=== PATIENT | female | born 1990 | race Caucasian/White ===

== ENCOUNTER → 2017-10-16 | Outpatient (CLI) | payer BC ==
--- NOTE | 2017-10-16 17:15 | CONS ---
CONSULTATION DATE OF SERVICE: 10/16/2017 27-year-old lady has been [facility] for possible obstructive sleep apnea-hypopnea syndrome. At present patient is 27 week weeks. HISTORY OF PRESENT ILLNESS SLEEP WAKE EVALUATION: SLEEP SCHEDULE: Patient usual sleep schedule on working days from 9 p.m. to 6:20 am and on weekends, from around, 11:00 am to 8:30/9 am. FALLING ASLEEP: She does not have any problem with the falling asleep although she reads in her bedroom. She prefers to sleep on the side position. DURING SLEEP: According to her , she has loud snoring and witnessed episodes of stopped breathing during the sleep. Positive history of restless legs symptoms. Patient wakes up from sleep 5 times with up to 3 episodes of nocturia. DURING THE DAY/SLEEP WAKE EVALUATION: No history of hypnagogic hallucinations, sleep paralysis or cataplexy. [place] Sleepiness Scale increased to 12. PAST MEDICAL HISTORY: Positive for seasonal allergies with episodes of rhinitis and difficulties to breathe through the nose, especially at night. 27 weeks. MEDICATIONS: vitamins, Zyrtec. PAST SURGICAL HISTORY: None. FAMILY HISTORY: Hypertension, arthritis, snoring, thyroid problems, anemia. SOCIAL HISTORY: Negative for smoking. Alcohol consumption none at the present time. PHYSICAL EXAM: lady without distress. BP 124/65, HR 80, RR 16, height 5 feet 3 inches, weight 147, and body mass index 26. Temperature 97.5, oxygen saturation room air 97%. Oropharynx moderately low position of soft palate, significant restriction of nasal breathing. Retrognathia 2 mm. Neck 12.5 inches in circumference. Abdomen of 27 week . I did not evaluate size of liver and spleen because of . Neck Supple, no JVD. Thyroid is not palpable. LUNGS Clear to percussion and to auscultation. Good air exchange. No wheezing or rhonchi. HEART S1, S2 regular. No murmurs, gallops, or rubs. ABDOMEN: Soft and nontender. Bowel sounds are present. EXTREMITIES No clubbing or cyanosis. HEALTH RECORD TECHNICIAN Awake, alert, and oriented X3. Cranial nerves 2 to 7 intact. There is no fasciculation or atrophy. noted. No focal deficits observed. IMPRESSION: 1. Snoring, witnessed episodes of stopped breathing during the sleep, small oropharyngeal air space, restriction of nasal breathing, obstructive sleep apnea- hypopnea syndrome, excessive daytime sleepiness. [place] Sleepiness Scale increased to 12. Patient takes naps in the afternoon. 2. 27 weeks. 3. Allergy. 4. Allergic rhinitis. PLAN: 1. Home sleep apnea test for evaluation of patient to check patient breathing during the sleep. 2. Following plan after reviewing results of the sleep study. 3. Sleep hygiene with regular time bed for at least 8 hours. 4. No driving if feeling sleepiness. Thank you very much for referring this patient for consultation. Sincerely, Jesus Manuel Peres MD, PhD, FAASM Diplomat of [place] [employer] [place] [employer] of [facility] [place] MMODL / IJN: [id number] /
== END | disposition home or self-care (01) ==
LOC: SLEEP 13:49
PROVIDERS: ATTEND Internal Medicine
DX: O26.892 Other specified pregnancy related conditions, second trimester (principal); G47.33 Obstructive sleep apnea (adult) (pediatric); J30.9 Allergic rhinitis, unspecified; T78.40XD Allergy, unspecified, subsequent encounter; Z3A.27 27 weeks gestation of pregnancy
CPT/HCPCS: 99211

== ENCOUNTER 2018-01-16 04:00 | Inpatient (IN) | payer BC ==
[2018-01-16] MEDS ORDERED: METHYLERGONOVINE 0.2 MG/ML 1 ML AMP IM PRN (04:16)
[2018-01-16] MEDS ORDERED: PENICILLIN G POTASSIUM 5,000,000 UNIT in DEXTROSE 5% IN WATER 100 ML IVPB STA ×2 (04:16)
[2018-01-16] MEDS ORDERED: TERBUTALINE 1 MG/ML VIAL SQ PRN (04:16)
[2018-01-16] MEDS ORDERED: CARBOPROST TROMETHAMINE 250 MCG/ML 1 ML AMP IM PRN (04:16)
[2018-01-16] MEDS ORDERED: OXYTOCIN 10 UNIT/ML 1 ML VIAL IM PRN (04:16)
[2018-01-16] MEDS ORDERED: LIDOCAINE 1% (PF) 10 MG/ML (30 ML SDV) SQ PRN (04:16)
[2018-01-16] MEDS ORDERED: OXYTOCIN 20 UNITS/1000 ML NS 1,000 ML IV SCH (04:30)
[2018-01-16] MEDS ORDERED: LACTATED RINGERS 1,000 ML IV SCH (04:30)
[2018-01-16 04:38] LABS: Basophils % (A) 0 %; Eosinophils # (A) 0.2 k/uL (0-0.7); Eosinophils % (A) 2 %; HCT 39.5 % (34.0-46.0); HGB 13.6 gm/dL (11.4-16.0); Lymphocytes # (A) 2.4 k/uL (1.0-4.8); Lymphocytes % (A) 24 %; MCH 29.3 pg (25.0-35.0); MCHC 34.5 g/dL (31.0-37.0); MCV 84.9 fL (80.0-100.0); Mean Platelet Volume 7.7; Monocytes # (A) 0.5 k/uL (0-1.0); Monocytes % (A) 5 %; Neutrophils # (A) 6.7 k/uL (1.3-7.7); Neutrophils % (A) 67 %; Platelet Count 270 k/uL (150-450); RBC 4.66 m/uL (3.80-5.40); WBC 10.1 k/uL (3.8-10.6)
--- NOTE | 2018-01-16 05:05 | P.HPOB ---
History of Present Illness H&P Date: 01/16/18 Chief Complaint: Strong regular uterine contractions This is a 27-year-old white female 1 para 0 EDC 01/16/2018 at 40 weeks gestation. Patient presents with strong regular uterine contractions and perineal pressure. She denies fluid leakage or vaginal bleeding. Fetus is been active throughout the . She was checked in the triage area and noted to be 7 cm dilated, 100% effaced, vertex presentation, -1 station. Past medical history is essentially negative. Past surgical history is also negative. Current medications vitamins daily, Zyrtec as needed. ALLERGIES none known. Family history significant for breast cancer and rheumatoid arthritis. Social history patient is a teacher, she is , she has never been a smoker , she denies alcohol or drug use. Obstetric history is significant for blood type B positive, rubella status immune. VDRL testing, urine culture, hepatitis B surface antigen, HIV testing, gonorrhea and chlamydia cultures all negative. One-hour Glucola 136. Group B strep cultures positive. On exam this is a pleasant white female, 5 foot 3 inches, 149 pounds, blood pressure 114/80, pulse 80, respirations 16, temperature 98.0, O2 sat 98%. The general physical exam is within normal limits. The cervix is consistent with anterior lip, vertex presentation, 100% effaced, -1-0 station. Artificial amniorrhexis reveals clear fluid. heart rate is consistent with reactive NST. Impression: 40 week intrauterine , active labor, delivery imminent. Positive group B strep cultures. Plan: Penicillin G first unit is being hung. We will proceed with pushing efforts, anticipating normal spontaneous vaginal delivery. Review of Systems Constitutional: Reports as per HPI Medications and Allergies Home Medications Medication Instructions Recorded Confirmed Type Pnv No.95/Ferrous Fum/Folic AC 1 tab PO ONCE 01/16/18 01/16/18 History [ Multivitamin Tablet] Allergies Allergy/AdvReac Type Severity Reaction Status Date / Time No Known Allergies Allergy Verified 01/16/18 04:07 Exam Intake and Output 01/15/18 01/15/18 01/16/18 14:59 22:59 06:59 Other: Weight 67.585 kg See dictation under HPI please Results Result Diagrams: 01/16/18 04:28 Assessment and Plan Assessment: 40 week intrauterine , active labor with delivery imminent, positive group B strep cultures. Plan: Anticipate normal spontaneous vaginal delivery. First dose of penicillin G being administered at this time. Time with Patient: Less than 30
[2018-01-16] MEDS ORDERED: diphenhydrAMINE 50 MG CAP PO PRN (06:02)
[2018-01-16] MEDS ORDERED: diphenhydrAMINE 50 MG/ML 1 ML VIAL IVP PRN ×2 (06:02)
[2018-01-16] MEDS ORDERED: ZOLPIDEM 5 MG TAB PO PRN (06:02)
[2018-01-16] MEDS ORDERED: BENZOCAINE/MENTHOL SPRAY 1 GM/SPRAY AEROSOL TOPICAL PRN (06:02)
[2018-01-16] MEDS ORDERED: WITCH HAZEL 1 EACH MED..PAD TOPICAL PRN (06:02)
[2018-01-16] MEDS ORDERED: LANOLIN CREAM 5 GM TUBE TOPICAL PRN (06:02)
[2018-01-16] MEDS ORDERED: SIMETHICONE 80 MG CHEWABLE PO PRN (06:02)
[2018-01-16] MEDS ORDERED: diphenhydrAMINE 25 MG CAP PO PRN (06:02)
[2018-01-16] MEDS ORDERED: HYDROCORTISONE 2.5% RECTAL CREAM 30 GM TUBE RECTAL PRN (06:02)
[2018-01-16] MEDS ORDERED: HYDROcodone/APAP 5-325MG 1 EACH TAB PO PRN (06:02)
--- NOTE | 2018-01-16 06:02 | P.PROBDLV ---
Vaginal Delivery Note - . Vaginal Delivery Note: This is a 27-year-old white female 1 para 0 EDC 01/17/1840 weeks gestation. Patient presented with strong regular uterine contractions, denying fluid leakage or vaginal bleeding. Fetus is been active throughout the . history significant for positive group B strep cultures, blood type A+, rubella status immune. Please see my dictated history and physical for details. Artificial amniorrhexis revealed clear fluid. Patient very quickly had anterior lip and therefore time was not adequate for epidural administration. Penicillin G was given 1 dose. Patient was completely dilated at 0451 hours and began the second stage of labor at that time. With excellent maternal expulsive efforts ultimately the infant's head crowned. Perineal body was prepped and draped in usual sterile fashion. Infant's head delivered occiput anterior and she restituted accordingly. There was no nuchal cord noted. The right or anterior shoulder was delivered from underneath the pubic symphysis at which time the oropharynx, nasopharynx, and external nares were all bulb suction. Patient was officially delivered of a liveborn female at 0533 hours. Umbilical cord was doubly clamped and ligated, she was handed to waiting nurses for evaluation where scores of 7 and 8 at one and 5 minutes respectively were given. Infant weighed 3425 g or 7 lbs. 8 oz. The placenta was delivered spontaneously , it was inspected and noted to be intact with trivascular cord at 0537 hours. At this time the uterus was massaged. Inspection of cervix, vagina, perineum, periurethral, and perirectal areas revealed a third-degree laceration. This was repaired in the usual fashion using 3-0 Vicryl suture, with care to reapproximate the sphincter muscle. Rectal examination after repair reveals good tone, smooth mucosa with no defects. Total estimated blood loss 350 mL's. All sponge needle and enhancement counts are correct at the end the procedure. Patient and her family are allowed to begin the bonding experience in the LDR.
[2018-01-16 06:20] VITALS: BMI 26.4
[2018-01-16] MEDS: IBUPROFEN 600 MG TAB PO PRN ×3 (07:17→19:27)
[2018-01-16] MEDS: SENNOSIDES-DOCUSATE SODIUM 1 EACH TAB PO SCH ×2 (07:18→19:25)
[2018-01-16] MEDS ORDERED: PENICILLIN G POTASSIUM 2,500,000 UNIT in DEXTROSE 5% IN WATER 100 ML IVPB SCH ×2 (09:00)
[2018-01-17] MEDS: ACETAMINOPHEN TAB 325 MG TAB PO PRN ×3 (00:14→19:44)
[2018-01-17] MEDS: IBUPROFEN 600 MG TAB PO PRN ×4 (03:35→22:43)
[2018-01-17] MEDS: SENNOSIDES-DOCUSATE SODIUM 1 EACH TAB PO SCH ×2 (07:50→20:15)
--- NOTE | 2018-01-17 08:34 | P.PNOBGVD ---
Subjective - Subjective Principal diagnosis: PPD 1 Interval history: Patient is doing well . She is ambulating and voiding without difficulty. She states her pain is controlled with oral medications. She is tolerating a regular diet without nausea or vomiting. She states her lochia is moderate. She is breast-feeding with some difficulty at this time. Patient reports: Reports appetite normal, Reports voiding normally, Reports pain well controlled : doing well Objective - Latest Vital Signs Latest vital signs: Vital Signs Temp Pulse Resp BP Pulse Ox 01/16/18 16:00 98.3 F 89 18 104/75 96 01/16/18 12:00 98.0 F 84 18 114/73 97 Intake and Output 01/16/18 01/17/18 01/17/18 22:59 06:59 14:59 Other: # Voids 1 2 - Exam Extremities: Present: normal Abdomen: Present: normal appearance, soft Uterus: Present: firm Assessment and Plan (1) Term Current Visit: Yes Status: Acute Code(s): Z34.80 - ENCOUNTER FOR SUPRVSN OF NORMAL , UNSP TRIMESTER SNOMED Code(s): 48259326 (2) Positive GBS test Current Visit: Yes Status: Acute Code(s): B95.1 - STREPTOCOCCUS, GROUP B, CAUSING DISEASES CLASSD [facility] SNOMED Code(s): 9648396999837 (3) Status post vaginal delivery Current Visit: Yes Status: Acute Code(s): QUS7489 - SNOMED Code(s): 107769151 (4) Third degree laceration of perineum during delivery, Current Visit: Yes Status: Acute Code(s): O70.20 - THIRD DEGREE PERINEAL LACERATION DURING DELIVERY, UNSP SNOMED Code(s): 999229173 Plan: We'll continue routine care. anticipate discharge home tomorrow morning.
[2018-01-18] MEDS: IBUPROFEN 600 MG TAB PO PRN (06:12)
[2018-01-18 08:41] VITALS: BP 108/71; PULSE 103; RESP 18; TEMP 97.3
--- NOTE | 2018-01-18 08:50 | P.DS ---
Providers Date of admission: 01/16/18 04:20 Expected date of discharge: 01/18/18 Attending physician: Yenny Koo Primary care physician: Myranda Sauceda - Discharge Diagnosis(es) (1) Term Current Visit: Yes Status: Acute (2) Positive GBS test Current Visit: Yes Status: Acute (3) Status post vaginal delivery Current Visit: Yes Status: Acute (4) Third degree laceration of perineum during delivery, Current Visit: Yes Status: Acute Hospital Course: This is a very pleasant 27-year-old 1 para 0 at 40-0/7 weeks that presents to labor and delivery on 817 with regular strong contractions. Patient was noted to be 7 cm progressed quickly to complete began pushing and had a normal spontaneous vaginal delivery of a viable female at 533, weight of 7 lbs. 8 oz. she did sustain a third degree vaginal laceration during delivery Patient has done well . She is ambulating and voiding without difficulty. She is tolerating a regular diet without nausea or vomiting. She states her pain is well-controlled. She states her lochia is moderate. She does wish discharge home on this day #2 Patient Condition at Discharge: Good Plan - Discharge Summary New Discharge Prescriptions: No Action Pnv No.95/Ferrous Fum/Folic AC [ Multivitamin Tablet] 1 tab PO ONCE Discharge Medication List Pnv No.95/Ferrous Fum/Folic AC [ Multivitamin Tablet] 1 tab PO ONCE [History] Follow up Appointment(s)/Referral(s): Yenny Koo DO [Doctor of Osteopathic Medicine] - 4 Weeks Patient Instructions/Handouts: Vaginal Delivery (DC), Vaginal Delivery (GEN) Discharge Disposition: HOME SELF-CARE
[2018-01-18] MEDS: SENNOSIDES-DOCUSATE SODIUM 1 EACH TAB PO SCH (09:04)
== END 2018-01-18 11:34 | disposition home or self-care (01) | DRG 775 ==
LOC: FBPOP 04:00 → 4FBP 04:20
PROVIDERS: ADMIT Obstetrics & Gynecology; ATTEND Obstetrics & Gynecology Obstetrics
PROC: 10907ZC Drainage of Amniotic Fluid, Therapeutic from Products of Conception, Via Natural or Artificial Opening (ICD-10-PCS; principal; 2018-01-16)
PROC: 10E0XZZ Delivery of Products of Conception, External Approach (ICD-10-PCS; principal; 2018-01-16)
PROC: 0DQR0ZZ Repair Anal Sphincter, Open Approach (ICD-10-PCS; principal; 2018-01-16)
DX: O48.0 Post-term pregnancy (principal); O70.20 Third degree perineal laceration during delivery, unspecified; Z37.0 Single live birth; O99.824 Streptococcus B carrier state complicating childbirth; Z3A.40 40 weeks gestation of pregnancy; Z80.3 Family history of malignant neoplasm of breast
CPT/HCPCS: 59025; 85025; 99213

== ENCOUNTER 2020-12-19 02:42 | Inpatient (IN) | payer BC ==
[2020-12-19] MEDS ORDERED: LIDOCAINE 0.5% (PF) 5 MG/ML (50 ML SDV) SQ PRN (03:15)
[2020-12-19] MEDS ORDERED: METHYLERGONOVINE 0.2 MG/ML 1 ML AMP IM PRN (03:15)
[2020-12-19] MEDS ORDERED: OXYTOCIN 10 UNIT/ML 1 ML VIAL IM PRN (03:15)
[2020-12-19] MEDS ORDERED: CARBOPROST TROMETHAMINE 250 MCG/ML 1 ML AMP IM PRN (03:15)
[2020-12-19] MEDS ORDERED: TERBUTALINE 1 MG/ML VIAL SQ PRN (03:15)
[2020-12-19] MEDS ORDERED: AMPICILLIN 2,000 MG in SODIUM CHLORIDE 0.9% 100 ML IVPB ONE (03:30)
[2020-12-19] MEDS: LACTATED RINGERS 1,000 ML IV SCH ×3 (03:48→20:12)
[2020-12-19 03:53] LABS: Basophils % (A) 0 %; Eosinophils # (A) 0.1 k/uL (0-0.7); Eosinophils % (A) 2 %; HCT 39.4 % (34.0-46.0); HGB 13.5 gm/dL (11.4-16.0); Lymphocytes # (A) 2.1 k/uL (1.0-4.8); Lymphocytes % (A) 32 %; MCH 29.8 pg (25.0-35.0); MCHC 34.3 g/dL (31.0-37.0); MCV 86.8 fL (80.0-100.0); Mean Platelet Volume 7.9; Monocytes # (A) 0.3 k/uL (0-1.0); Monocytes % (A) 4 %; Neutrophils % (A) 60 %; Platelet Count 244 k/uL (150-450); RBC 4.55 m/uL (3.80-5.40); RDW 12.6 % (11.5-15.5); WBC 6.6 k/uL (3.8-10.6)
[2020-12-19] MEDS: AMPICILLIN 1,000 MG in SODIUM CHLORIDE 0.9% 50 ML IVPB SCH ×2 (07:30→11:31)
--- NOTE | 2020-12-19 08:27 | P.HPOB ---
History of Present Illness H&P Date: 12/19/20 Chief Complaint: IUP at 40 and 5/7 weeks, active labor This is a 30-year-old 001 at 40-5/7 weeks with an estimated due date of 12/14. Patient presents to labor and delivery of with complaints of regular painful contractions. Patient was noted to be 4 cm upon admission. Patient denied vaginal bleeding or loss of fluid. Patient has been receiving routine care which has been essentially uncomplicated. Patient has known blood type of A+, rubella status immune, hepatitis B surface antigen negative, HIV negative, RPR nonreactive, group beta strep is positive. Review of Systems Constitutional: Denies chills, Denies fatigue, Denies fever Ears, nose, mouth and throat: Denies headache Cardiovascular: Reports leg edema Respiratory: Denies dyspnea Gastrointestinal: Denies constipation, Denies diarrhea, Denies nausea, Denies vomiting Genitourinary: Reports Past Medical History Past Medical History: No Reported History History of Any Multi-Drug Resistant Organisms: None Reported Past Surgical History: No Surgical Hx Reported Past Anesthesia/Blood Transfusion Reactions: No Reported Reaction Past Psychological History: No Psychological Hx Reported Smoking Status: Never smoker Past Alcohol Use History: None Reported Past Drug Use History: None Reported - Past Family History Mother Family Medical History: Rheumatoid Arthritis (RA) Father Family Medical History: Hyperlipidemia, Hypertension Medications and Allergies Home Medications Medication Instructions Recorded Confirmed Type Pnv No.95/Ferrous Fum/Folic AC 1 tab PO ONCE 01/16/18 12/19/20 History [ Multivitamin Tablet] Cetirizine HCl [Zyrtec] 1 tab PO DAILY 12/19/20 12/19/20 History Allergies Allergy/AdvReac Type Severity Reaction Status Date / Time No Known Allergies Allergy Verified 12/19/20 02:51 Exam Osteopathic Statement: *. No significant issues noted on an osteopathic structural exam other than those noted in the History and Physical/Consult. Vital Signs Temp Pulse Resp BP Pulse Ox 12/19/20 02:50 97.4 F L 103 H 18 100/64 97 Intake and Output 12/18/20 12/19/20 12/19/20 22:59 06:59 14:59 Other: Weight 68.492 kg Targeted physical exam is performed in this date and director park a well-nourished well-developed female in labor, breathing is done labored, heart has a regular rate and rhythm, abdomen is gravid and appropriate for gestational age, on cervical exam she is 9/100/-1 station amniotomy is performed and clear fluid is obtained. heart tones returned be category 1 and she is veena every 3 minutes. Results Result Diagrams: 12/19/20 03:30 Assessment and Plan (1) Post-dates Current Visit: Yes Status: Acute Code(s): O48.0 - POST-TERM SNOMED Code(s): 60210638 (2) Positive GBS test Current Visit: No Status: Acute Code(s): B95.1 - STREPTOCOCCUS, GROUP B, CAUSING DISEASES CL[facility]SD [facility] SNOMED Code(s): 577078407 Plan: 30-year-old at 40-5/7 weeks that presents to labor and delivery for active labor. Patient is admitted to labor and delivery. Patient declines Pitocin augmentation of labor. Patient declines epidural. Amniotomy was performed as patient is 9 cm and veena at irregular intervals at this time. Anticipate spontaneous vaginal delivery.
[2020-12-19] MEDS ORDERED: OXYTOCIN 30 UNITS/500 ML NS 30 UNIT in SALINE 1 500ML.BAG IV SCH ×2 (08:45→09:30)
[2020-12-19] MEDS ORDERED: HYDROCORTISONE 2.5% RECTAL CREAM 30 GM TUBE RECTAL PRN (09:19)
[2020-12-19] MEDS ORDERED: LANOLIN CREAM 5 GM TUBE TOPICAL PRN (09:19)
[2020-12-19] MEDS ORDERED: BENZOCAINE/MENTHOL SPRAY 1 GM/SPRAY AEROSOL TOPICAL PRN (09:19)
[2020-12-19] MEDS ORDERED: diphenhydrAMINE 50 MG CAP PO PRN (09:19)
[2020-12-19] MEDS ORDERED: ZOLPIDEM 5 MG TAB PO PRN (09:19)
[2020-12-19] MEDS ORDERED: diphenhydrAMINE 50 MG/ML 1 ML VIAL IVP PRN ×2 (09:19)
[2020-12-19] MEDS ORDERED: diphenhydrAMINE 25 MG CAP PO PRN (09:19)
[2020-12-19] MEDS ORDERED: SIMETHICONE 80 MG CHEWABLE PO PRN (09:19)
--- NOTE | 2020-12-19 09:24 | P.PROBDLV ---
Vaginal Delivery Note - . Vaginal Delivery Note: This is a 30-year-old at 40-5/7 weeks that presented to labor and delivery with complaints of regular painful contractions. Patient was deemed to be in active labor and was admitted to labor and delivery. Patient progressed through the night making slow cervical change. Patient was noted to be group beta strep positive therefore antibiotic prophylaxis was begun. Once antibiotics have been in for 4 hours amniotomy was performed and clear fluid was obtained. Patient progressed to complete began pushing and had a normal spontaneous vaginal delivery of a viable male infant at 858, occiput transverse presentation, weight of 8 lbs. 0 oz., Apgars of 9 and 9 at one and 5 minutes respectively. After two-minute delay the umbilical cords doubly clamped and cut. The placenta was delivered spontaneously intact with a three-vessel cord being noted. On inspection the patient's vaginal vault a second-degree midline vaginal laceration was appreciated. This was repaired in usual fashion with 3-0 Rapide. Rectal exam was performed. Small sphincter injury was appreciated this was repaired with 3-0 Rapide. Otherwise rectum appears intact with no defects. After repair laceration appeared hemostatic. Uterus was noted to be firm and below the umbilicus. Estimated blood loss 200 mL. Patient and infant tolerated delivery well and are resting comfortably.
[2020-12-19] MEDS: SENNOSIDES-DOCUSATE SODIUM 1 EACH TAB PO SCH ×3 (09:40→19:37)
[2020-12-19] MEDS: IBUPROFEN 600 MG TAB PO PRN ×2 (09:40→15:24)
[2020-12-19] MEDS: ACETAMINOPHEN TAB 325 MG TAB PO PRN ×2 (14:04→19:37)
[2020-12-19 20:12] VITALS: RESP 16
[2020-12-20] MEDS: IBUPROFEN 600 MG TAB PO PRN ×2 (00:09→06:36)
[2020-12-20] MEDS: ACETAMINOPHEN TAB 325 MG TAB PO PRN (04:12)
[2020-12-20 06:52] LABS: Basophils # (A) 0.1 k/uL (0-0.2); Basophils % (A) 1 %; Eosinophils # (A) 0.2 k/uL (0-0.7); Eosinophils % (A) 2 %; HCT 38.2 % (34.0-46.0); HGB 12.4 gm/dL (11.4-16.0); Lymphocytes # (A) 2.3 k/uL (1.0-4.8); Lymphocytes % (A) 23 %; MCH 29.5 pg (25.0-35.0); MCHC 32.5 g/dL (31.0-37.0); MCV 90.9 fL (80.0-100.0); Mean Platelet Volume 7.6; Monocytes # (A) 0.4 k/uL (0-1.0); Monocytes % (A) 4 %; Neutrophils # (A) 6.7 k/uL (1.3-7.7); Neutrophils % (A) 69 %; Platelet Count 220 k/uL (150-450); WBC 9.7 k/uL (3.8-10.6)
[2020-12-20] MEDS: SENNOSIDES-DOCUSATE SODIUM 1 EACH TAB PO SCH (07:39)
[2020-12-20 07:42] VITALS: BP 108/75; PULSE 69; TEMP 98.1
--- NOTE | 2020-12-20 08:38 | P.DS ---
Providers Date of admission: 12/19/20 03:20 Expected date of discharge: 12/20/20 Attending physician: Yenny Koo Primary care physician: Stated None - Discharge Diagnosis(es) (1) Post-dates Current Visit: Yes Status: Acute (2) Positive GBS test Current Visit: No Status: Acute (3) Second degree perineal laceration during delivery Separation of the rectal sphincter is appreciated on rectal exam no communication to vaginal vault. Current Visit: Yes Status: Acute (4) Status post vaginal delivery Current Visit: No Status: Acute Hospital Course: This is a 30-year-old that presented to labor and delivery at 40-5/7 weeks for regular painful contractions. Patient was noted to be 4 cm and admitted to labor and delivery. Patient progressed through labor. IV antibiotics were begun given GBS positive rectovaginal culture. Once 4 hours had elapsed amniotomy is performed and patient was noted to be 9 cm. Patient progressed to complete began pushing and had a normal spontaneous vaginal delivery of a viable male at 858, weight of 8 lbs. 0 oz. Patient did sustain a second-degree midline laceration during delivery. Prior laceration with her first child was a third-degree laceration. Rectal exam was performed noted to be normal with a slight defect in the anterior portion of the rectal sphincter. Discussion with patient regarding laceration and sphincter injury. I did recommend evaluation with colorectal surgeon. Patient's course has been uneventful. On this day #1 she is ambulating and voiding without difficulty. She is tolerating a regular diet without nausea or vomiting. She states her pain is well-controlled. She would like discharge home. Patient Condition at Discharge: Good Plan - Discharge Summary New Discharge Prescriptions: No Action Pnv No.95/Ferrous Fum/Folic AC [ Multivitamin Tablet] 1 tab PO ONCE Cetirizine HCl [Zyrtec] 1 tab PO DAILY Discharge Medication List Pnv No.95/Ferrous Fum/Folic AC [ Multivitamin Tablet] 1 tab PO ONCE 01/16/18 [History] Cetirizine HCl [Zyrtec] 1 tab PO DAILY 12/19/20 [History] Follow up Appointment(s)/Referral(s): Yenny Koo DO [Doctor of Osteopathic Medicine] - 4 Weeks Activity/Diet/Wound Care/Special Instructions: Patient is to continue her senna S2 at bedtime throughout her recovery. Patient is to follow-up in 4 weeks for routine exam. Should patient have any concerns prior to her visit she is urged to call the office. Discharge Disposition: HOME SELF-CARE
== END 2020-12-20 12:15 | disposition home or self-care (01) | DRG 807 ==
LOC: FBPOP 02:42 → 4FBP 03:20
PROVIDERS: ADMIT Obstetrics & Gynecology Obstetrics; ATTEND Obstetrics & Gynecology Obstetrics
PROC: 10E0XZZ Delivery of Products of Conception, External Approach (ICD-10-PCS; principal; 2020-12-19)
PROC: 0KQM0ZZ Repair Perineum Muscle, Open Approach (ICD-10-PCS; 2020-12-19)
DX: O48.0 Post-term pregnancy (principal); Z37.0 Single live birth; O32.2XX0 Maternal care for transverse and oblique lie, not applicable or unspecified; O70.1 Second degree perineal laceration during delivery; O99.824 Streptococcus B carrier state complicating childbirth; Z3A.40 40 weeks gestation of pregnancy; Z82.49 Family history of ischemic heart disease and other diseases of the circulatory system
CPT/HCPCS: 59025; 85025; 86850; 86900; 86901; 99213